=== PATIENT | female | born 1985 | race African-American/Black ===

== ENCOUNTER → 2017-12-31 15:19 | Outpatient (CLI) | payer OTHER, SELFPAY ==
[2017-12-31 16:49] LABS: Anion Gap 5 (5-15); BUN 11 mg/dL (7-18); BUN/Creat Ratio 12.7 RATIO (10-20); Calcium,Total 9.3 mg/dL (8.5-10.1); Chloride 104 mmol/L (98-107); Creatinine, Serum 0.87 mg/dL (0.55-1.02); EST Glomerular Filtration Rate 80 mL/min (>60); Est Glom Filt Rate - Afr Amer 96 mL/min (>60); Glucose 73 mg/dL (74-106); Potassium 3.4 mmol/L (3.5-5.1); Sodium Level 138 mmol/L (136-145)
== END ==
PROVIDERS: Family Provider Internal Medicine; PCP Internal Medicine; Visit Provider Internal Medicine
DX: I10 Essential (primary) hypertension (principal)
CPT/HCPCS: 36415; 80048

== ENCOUNTER → 2019-07-06 09:11 | Outpatient (CLI) | payer OTHER, SELFPAY ==
[2019-06-13 09:24] VITALS: BMI 28.8
[2019-07-06 10:28] LABS: Anion Gap 4 (5-15); BUN 6 mg/dL (7-18); BUN/Creat Ratio 6.8 RATIO (10-20); Calcium,Total 9.1 mg/dL (8.5-10.1); Chloride 99 mmol/L (98-107); Creatinine, Serum 0.88 mg/dL (0.55-1.02); EST Glomerular Filtration Rate 78 mL/min (>60); Est Glom Filt Rate - Afr Amer 94 mL/min (>60); Glucose 93 mg/dL (74-106); Sodium Level 133 mmol/L (136-145)
== END ==
PROVIDERS: Family Provider Internal Medicine; PCP Internal Medicine; Referring Provider Internal Medicine; Visit Provider Internal Medicine
DX: I10 Essential (primary) hypertension (principal)
CPT/HCPCS: 36415; 80048

== ENCOUNTER → 2019-07-11 10:01 | Outpatient (CLI) | payer OTHER, SELFPAY ==
[2019-07-11 09:10] VITALS: BMI 28.8
[2019-07-11 10:04] LABS: Bacteria 0 SEEN /hpf (None Seen); Mucous, Urine 0 SEEN /hpf (<or=2+); Red Blood Cells-Urine 0 SEEN /hpf (0-5)
[2019-07-11 12:30] LABS: Color, Urine Yellow (Yellow); Glucose, Dipstick Normal (Normal); Ketone-Dipstick Negative (Negative); Leukocyte Esterase-Dipstick 500 /ul (Negative); Nitrite-Dipstick Negative (Negative); Occult Blood-Urine Negative /ul (Negative); Protein-Dipstick Negative (Negative); Specific Gravity, Urine 1.005 (1.002-1.030); Urine Bilirubin Dipstick Negative (Negative); Urine Clarity Sl. Cloudy (Clear); Urine Urobilinogen Normal (Normal)
[2019-07-11 12:41] LABS: Squamous Epithelial Cells - UA 0-5 SEEN /hpf (5-10); White Blood Cells 25-50 SEEN /hpf (0-5)
== END ==
PROVIDERS: Family Provider Internal Medicine; PCP Internal Medicine; Visit Provider Internal Medicine
DX: N39.0 Urinary tract infection, site not specified (principal)
CPT/HCPCS: 81001

== ENCOUNTER → 2019-07-19 09:22 | Outpatient (CLI) | payer OTHER, SELFPAY ==
[2019-07-11 09:10] VITALS: BMI 28.8
[2019-07-19 10:04] LABS: Anion Gap 5 (5-15); BUN 8 mg/dL (7-18); BUN/Creat Ratio 8.4 RATIO (10-20); Calcium,Total 9.5 mg/dL (8.5-10.1); Chloride 105 mmol/L (98-107); Creatinine, Serum 0.95 mg/dL (0.55-1.02); EST Glomerular Filtration Rate 71 mL/min (>60); Est Glom Filt Rate - Afr Amer 86 mL/min (>60); Glucose 81 mg/dL (74-106); Potassium 3.5 mmol/L (3.5-5.1); Sodium Level 138 mmol/L (136-145)
== END ==
PROVIDERS: Family Provider Internal Medicine; PCP Internal Medicine; Referring Provider Internal Medicine; Visit Provider Internal Medicine
DX: I10 Essential (primary) hypertension (principal); E87.6 Hypokalemia
CPT/HCPCS: 36415; 80048

== ENCOUNTER → 2019-08-29 10:24 | Outpatient (CLI) | payer MEDICAID, SELFPAY ==
[2019-07-11 09:10] VITALS: BMI 28.8
[2019-08-29 12:40] LABS: Anion Gap 7 (5-15); BUN 6 mg/dL (7-18); BUN/Creat Ratio 6.5 RATIO (10-20); Calcium,Total 9.5 mg/dL (8.5-10.1); Chloride 103 mmol/L (98-107); Creatinine, Serum 0.93 mg/dL (0.55-1.02); EST Glomerular Filtration Rate 73 mL/min (>60); Est Glom Filt Rate - Afr Amer 89 mL/min (>60); Glucose 87 mg/dL (74-106); Potassium 3.6 mmol/L (3.5-5.1); Sodium Level 136 mmol/L (136-145)
== END ==
PROVIDERS: Family Provider Internal Medicine; PCP Internal Medicine; Referring Provider Internal Medicine; Visit Provider Internal Medicine
DX: I10 Essential (primary) hypertension (principal)
CPT/HCPCS: 36415; 80048

== ENCOUNTER → 2020-06-18 10:20 | Outpatient (CLI) | payer MEDICAID, SELFPAY ==
[2020-06-18 10:01] VITALS: BMI 28.4
[2020-06-18 12:15] LABS: Absolute Lymphocyte Count 1.98 X10^3/uL (0.83-4.51); Absolute Neutrophil Count 2.2 X10^3/uL (2.0-7.7); Basophil# 0.03 X10^3/uL; Basophil% 0.6 % (0-1); Eosinophil# 0.07 X10^3/uL; Eosinophils% 1.5 % (0-5); Hematocrit 38.6 % (37-47); Hemoglobin 12.6 g/dL (12.0-15.0); Lymphocyte # 1.98 X10^3/ul (4.0); Lymphocyte % 42.8 % (19-41); Mean Corp Hgb Conc 32.6 g/dL (32-36); Mean Corpuscular Hgb 27.4 pg (27.0-32.0); Mean Corpuscular Volume 83.9 fL (81-99); Mean Platelet Vol. 9.4 fl (6.2-12.0); Monocyte# 0.36 X10^3/uL; Monocyte% 7.8 % (0-10); NRBC Flagged by Analyzer 0 % (0-5); Neutrophil # 2.18 X10^3/uL (2.7-7.7); Neutrophil % 47.1 % (47-70); Platelet Count 269 K/mm3 (150-450); RBC Distribution Width CV 12.3 % (11.6-14.6); RBC Distribution Width SD 37.2 fl (35.1-43.9); White Blood Count 4.6 K/mm3 (4.4-11.0)
[2020-06-18 12:29] LABS: AST(SGOT) 25 U/L (15-37); Alanine Aminotransfer ALT/SGPT 42 U/L (13-56); Albumin, Serum 3.9 g/dL (3.2-5.0); Alkaline Phosphatase 46 U/L (45-117); Anion Gap 4 (5-15); BUN 7 mg/dL (7-18); BUN/Creat Ratio 7.7 RATIO (10-20); Calcium,Total 9.6 mg/dL (8.5-10.1); Chloride 103 mmol/L (98-107); Cholesterol 154 mg/dL (200); Creatinine, Serum 0.91 mg/dL (0.55-1.02); EST Glomerular Filtration Rate 75 mL/min (>60); Est Glom Filt Rate - Afr Amer 90 mL/min (>60); Globulin 3.8 g/dL (2.2-4.2); Glucose 85 mg/dL (74-106); High Density Lipoprotein 54 mg/dL; Potassium 3.4 mmol/L (3.5-5.1); Protein, Total 7.7 g/dL (6.4-8.2); Sodium Level 134 mmol/L (136-145); Triglycerides 47 mg/dL; Very Low Density Lipoprotein 9 mg/dL (5-40)
== END ==
PROVIDERS: PCP Internal Medicine; Visit Provider Internal Medicine
DX: I10 Essential (primary) hypertension (principal)
CPT/HCPCS: 36415; 80053; 80061; 85025

== ENCOUNTER → 2020-09-24 09:44 | Outpatient (CLI) | payer MEDICAID, SELFPAY ==
[2020-09-24 09:32] VITALS: BMI 29.6
[2020-09-24 13:15] LABS: Anion Gap 4 (5-15); BUN 10 mg/dL (7-18); BUN/Creat Ratio 9.5 RATIO (10-20); Calcium,Total 9.8 mg/dL (8.5-10.1); Chloride 104 mmol/L (98-107); Creatinine, Serum 1.05 mg/dL (0.55-1.02); EST Glomerular Filtration Rate 63 mL/min (>60); Est Glom Filt Rate - Afr Amer 76 mL/min (>60); Glucose 97 mg/dL (74-106); Potassium 3.6 mmol/L (3.5-5.1); Sodium Level 136 mmol/L (136-145)
== END ==
PROVIDERS: PCP Internal Medicine; Visit Provider Internal Medicine
DX: I10 Essential (primary) hypertension (principal)
CPT/HCPCS: 36415; 80048

== ENCOUNTER 2021-01-24 10:13 | Day surgery (SDC) | payer MEDICAID, SELFPAY ==
--- NOTE | 2021-01-22 13:59 | PCM.HP.BLA ---
History and Physical Date of Admission: 01/24/21 Shara Granados Physician Specialty: VESSEL TRAFFIC OFFICER H&P ? Signed Encounter Date: 01/16/2021 Expand AllCollapse All Expand All by Default Hide copied text Baironver for details Pre-Op History and Physical ? HPI: The patient is a 35 year old female presenting for discussion regarding Sterilization. Pt currently using mirena iud- does not desire further children ? ? She is scheduled for laparoscopic salpingectomy and removal of IUD, for desires sterilization. on 01/24/21. Procedure discussed along with risks, benefits and complications. Other alternatives discussed for management. Consent form signed? Yes. ? ? PAST MEDICAL HISTORY PAST MEDICAL HISTORY Diagnosis Date ? Anemia ? ? ? Chlamydia ? ? 2010 ? Essential hypertension 09/04/2015 ? Heart murmur ? Trivial TR and MR ? HTN in , chronic 02/21/2015 ? Iron deficiency anemia 11/07/2015 ? ? PAST SURGICAL HISTORY PAST SURGICAL HISTORY Procedure Laterality Date ? DELIVERY ONLY ? 07/13/15 ? , low transverse ? PAST SURGICAL HISTORY OF ? 11/2005 ? I&D OF ABCESS ON BUTTOCKS ? ? ? CURRENT MEDICATIONS Current Outpatient Medications Medication Sig Dispense Refill ? losartan (COZAAR) 50 mg tablet 100 mg once daily. ? ashwagandha root extract 300 mg cap Take by mouth. ? ? ? cholecalciferol (VITAMIN D-3) 5,000 unit tab Take 5,000 Units by mouth once daily. ? ? ? Ascorbic Acid (VITAMIN C) 500 mg chew Take 500 mg by mouth once daily. ? ? ? docosahexaenoic acid/epa (FISH OIL ORAL) Take by mouth. ? ? ? Fish Oil-Vit E-Fat Acid5-Hb137 (FLAX, FISH AND BORAGE OIL) 400-5 mg-unit cap Take 1 capsule by mouth. ? ? ? LISINOPRIL ORAL Take by mouth. Takes 50mg daily ? ? ? MULTIVITAMIN ORAL Take by mouth. ? ? ? ferrous sulfate (IRON, FERROUS SULFATE,) 325 mg (65 mg iron) tablet Take 325 mg by mouth daily with breakfast. ? ? ? hydroCHLOROthiazide (HYDRODIURIL, ESIDRIX) 25 mg tablet Take 1 tablet by mouth once daily. (Patient taking differently: Take 12.5 mg by mouth once daily. ) 90 tablet 3 ? levonorgestrel (MIRENA) 20 mcg/24 hr (5 years) IUD Inserted in office 1 Each 0 ? ibuprofen (MOTRIN) 600 mg tablet Take 1 tablet by mouth every 6 hours as needed. 30 tablet 0 ? simethicone, chewable (MYLICON) 80 mg chewable tablet Take 1 tablet by mouth every 6 hours as needed. 30 tablet 0 ? clotrimazole-betamethasone (LOTRISONE) cream Apply 1 application to affected area twice daily. (Patient not taking: Reported on 09/05/2019 ) 15 g 0 ? No current facility-administered medications for this visit. ? ? ALLERGIES: Bactrim [Sulfamethoxazole-Trimethoprim] ? PERSONAL HISTORY: SOCIAL HISTORY Social History ? Tobacco Use ? Smoking status: Never Smoker ? Smokeless tobacco: Never Used Vaping Use ? Vaping Use: Never used Substance Use Topics ? Alcohol use: No ? Drug use: No ? FAMILY HISTORY: FAMILY HISTORY FAMILY HISTORY Problem Relation Age of Onset ? Hypertension Mother ? ? Hyperlipidemia Father ? ? Cancer Father ? ? ? REVIEW OF SYMPTOMS: negative except as noted above PHYSICAL EXAMINATION: ? VITALS: Blood pressure 144/82, height 5' 7.5 (1.715 m), weight 195 lb (88.5 kg), last menstrual period 10/26/2016. ? GENERAL: The patient is well nourished, well hydrated in no acute distress. , The patient is oriented to time, place, and person. NECK: full range of motion GENITALIA: deferred ? IMPRESSION: Desires sterilization and removal of IUD ? PLAN: Laparoscopic bilateral salpingectomy and removal of iud ? Pt has been counseled on risks/benefits and alternatives of surgery including but not limited to anesthesia, bleeding, infection, injury to pelvic structures including bowel, bladder, ureters and vessels. Pt wishes to proceed with surgery at this time. ? TITLE 19 previously signed- discussed continued use of LARC and irreversible procedure with Salpingectomy- pt understands and wishes to proceed. POST OP MEDS GIVEN ? ? I have reviewed and updated past medical and surgical history, medications and allergies Shara Granados MD ?3:43 PM
--- NOTE | 2021-01-24 | FALS_PTH ---
PATIENT: LENNY LONDONO LOC: [facility] [place][id number] AGE/SX: 35/F ROOM: RE01/24/[address]: Dr. Shara Cruz, MDDOB: 1985 BED: DIS: 01/24/2021 SPEC #: [id number] RECD: 01/24/21 13:30 STATUS: IWONA SARAH #: [id number] JERE: 01/24/21 00:[address]: Shara Cruz DEPT: SURGICAL PATHOLOGY RECD BY: Tarun Simons ENTERED: 01/25/21 07:56 SP TYPE: FALL TUBES OTHR DR: Dr. Razia Gtz MD Tissues: Fallopian tube Procedures: Surgery Specimen Level II HEADER OPERATION: Laparoscopic salpingectomy, IUD removal PRE-OP DIAGNOSIS: Sterilization, removal of IUD TISSUE SUBMITTED: Bilateral fallopian tubes MICROSCOPIC DIAGNOSIS Right and left fallopian tubes, bilateral salpingectomies: Complete cross-sections of fallopian tubes with no pathologic change. AM:bennett 01/28/2021 MICROSCOPIC DESCRIPTION Slides are reviewed. GROSS DESCRIPTION Received in fixative is one container labeled with the patient's name and designated bilateral fallopian tubes. The specimen consists of bilateral fallopian tubes including fimbrial ends measuring 5.5 cm in length and 0.6 cm in diameter and 7 cm in length and 0.5 cm in diameter. The fallopian tubes are not identified as right or left. Sections reveal unremarkable cut surfaces. Embossing Machine Operator Helper sections are submitted in two cassettes with each cassette containing one fallopian tube. / LOIDA:bennett 01/25/21 TC:4 CPT: 87926 x2
[2021-01-24 10:36] VITALS: BP 149/65; PULSE 79; RESP 14; TEMP 36.6; O2SAT 100; BMI 30.7
[2021-01-24 10:37] LABS: Internal QC Validated? YES +Cl - CLEAR BKGD; Pregnancy, Urine Negative Negative
[2021-01-24 11:01] LABS: Hematocrit 39.1 % (37-47); Hemoglobin 12.7 g/dL (12.0-15.0); Mean Corp Hgb Conc 32.5 g/dL (32-36); Mean Corpuscular Hgb 27.7 pg (27.0-32.0); Mean Corpuscular Volume 85.2 fL (81-99); Mean Platelet Vol. 8.6 fl (6.2-12.0); Platelet Count 260 K/mm3 (150-450); RBC Distribution Width CV 12.5 % (11.6-14.6); RBC Distribution Width SD 38.6 fl (35.1-43.9); Red Blood Count 4.59 M/mm3 (4.2-5.4); White Blood Count 5.4 K/mm3 (4.4-11.0)
[2021-01-24] MEDS: Lactated Ringers 1,000 ML 100 ML IV ×2 (11:02→13:01)
[2021-01-24 11:14] LABS: Anion Gap 5 (5-15); BUN 6 mg/dL (7-18); BUN/Creat Ratio 6.2 RATIO (10-20); Calcium,Total 9.6 mg/dL (8.5-10.1); Chloride 103 mmol/L (98-107); Creatinine, Serum 0.97 mg/dL (0.55-1.02); EST Glomerular Filtration Rate 69 mL/min (>60); Est Glom Filt Rate - Afr Amer 83 mL/min (>60); Estimated Creatinine Clearance 77.97 ml/min; Glucose 89 mg/dL (74-106); Potassium 3.6 mmol/L (3.5-5.1); Sodium Level 134 mmol/L (136-145)
--- NOTE | 2021-01-24 11:58 | PCM.DC.TUB ---
Discharge Diet: No Restrictions, - - Increase fluid intake for 48 hours. Discharge Activity: Return to Normal Activity, May Drive - when you are no longer taking narcotic pain medications., May Shower, May Take a Tub Bath - in 7 days., - - Ambulate often the next week after surgery. May shower in (days): 1 May resume sexual activity in: 1 week Lifting Restrictions: 25lb for one week Additional Activity Instructions:: Nothing in the vagina for the next 5-7 days. Call your doctor if your incision/area has: Continuous Slow Oozing, Sudden Increased Bleeding, Increased Pain/ Swelling, Increased Redness, Foul Smelling Discharge, Swelling at the incision site Call your doctor if you observe: Fever of 101 or Higher Cleanse incision/area with: - - you have Skin glue over your incision sites. Do not pick it off. You may let soap and water run over the areas and dab dry. Allergies/Adverse Reactions: Allergies sulfamethoxazole [From Bactrim] Allergy (Verified 01/24/21 10:40) Hives trimethoprim [From Bactrim] Allergy (Verified 01/24/21 10:40) Hives Medications to take at Discharge Multivitamin [Daily Multiple Vitamin] 1 ea PO DAILY 03/11/17 iron 45 mg PO DAILY 12/30/17 cholecalciferol (vitamin D3) 25 mcg (1,000 unit) capsule 125 mcg PO DAILY 06/18/20 potassium chloride 20 mEq tablet,extended release 20 meq PO DAILY #90 tab 06/18/20 hydrochlorothiazide 12.5 mg tablet 12.5 mg PO QAM #90 tab 12/17/20 losartan 100 mg tablet 100 mg PO DAILY 90 Days #90 tab 01/07/21 Ascorbic Acid [Vitamin C] 500 mg PO DAILY 01/17/21 Valentines-3 Fatty Acids [Fish Oil] 500 mg PO DAILY 01/17/21 Primary Care Physician: Razia Gtz MD [Primary Care Provider] - Test Results: Test results from this visit will be discussed in further detail at your follow-up appointment, if applicable. Please Follow Up With: Shara Cruz MD When: 2 weeks [phone]
[2021-01-24] MEDS: Bupivacaine Mpf 0.5% 30 ML VIAL (12:50)
--- NOTE | 2021-01-24 12:55 | OP.PCM_ITS ---
Problem List (1) Intra-abdominal adhesions Status: Acute Report of Operation Date of Procedure: 01/24/21 Pre-Operative Diagnosis: Intra-abdominal adhesions Post-Operative Diagnosis: Same Surgery/Procedure Performed:: Laparoscopic enteral lysis of intra-abdominal adhesions Type of Anesthesia:: General Anesthesiologist: Harish Enriquez Specimen's removed: none Estimated Blood Loss (mL): < 5 cc Description of Procedure: I was called into the operating room from Shara Browne. Ms. Kelly was in the supine position with her legs in stirrups 3 #5 trochars were in her abdomen just above the umbilicus and then 2 on the left and right side. Patient had dense adhesions of the small intestine up to the abdominal wall. And was clear that this was going to act as a pedicle at some point. In my opinion these adhesions needed to be taken down. I took sharp new Metzenbaum sc issors and a nonpenetrating grasper I grabbed the small intestine pulled it down and was able to remove the adhesions from the abdominal wall using only sharp dissection. I had no injury to bowel or to the vasculature of the small intestine. Once it was completely down I inspected there were no other adhesions on the small intestine there was no other lesions on the small intestine and I had good in the stasis. Patient has a diastases of her lower fascia but it is not really a true hernia. But she does have an umbilical hernia. Shara Browne will dictate the rest of portions of the surgery. I will follow up with the patient regarding her umbilical hernia defect. - Admit VTE Documentation VTE Present on Admission: No VTE Mechan Device Prophylaxis: SCD's VTE Pharm Prophylaxis ordered?: No Reason prophylaxis not ordered:: Treatment Not Indicated
--- NOTE | 2021-01-24 13:05 | PCM.OPRPT ---
Report of Operation Date of Procedure: 01/24/21 - start time: 1218 end 1304 Pre-Operative Diagnosis: desires sterilization, IUD threads lost Post-Operative Diagnosis: same, Small bowel adhesions to anterior abomdinal wall Surgery/Procedure Performed:: Laparoscopic Bilateral Salpingectomy, Hysteroscopic removal retained IUD, enterolysis (performed by Dr. Hudson) Description of Surgical Findings:: Umbilical hernia appreciated. Small bowel adherant to anterior abdominal wall - rectus diathesis. normal uterus, tubes and ovaries. Unable to remove IUD with long lainey- operative hysteroscope was performed to remove Type of Anesthesia:: General Special Medications: 0.5% marcaine Specimen's removed: Bilateral fallopian tubes, Mirena IUD Drains: none Estimated Blood Loss (mL): 5 Fluids Replaced: 1200 Description of Procedure: After informed consent was obtained patient was taken to the operating room she was placed in supine position she was given anesthesia. She was then placed in the [facility] stirrups and she was prepped and draped in normal sterile fashion. Bladder was drained prior to the start of procedure. At this time attention was turned to the vaginal portion where weighted speculum placed at posterior fornix vagina single-tooth tenaculum was used to gently grasp the internal the cervix. uterus was gently sounded to approximately 9 cm. unable to remove IUD as threads were lost and mulitple attempts at removal were unsuccessful at this time- OR team gathered instruments for Hysteroscopic assisted removal. at this time Uterine manipulator was placed without difficulty. Legs then placed in parallel with the abdomen the tenaculum and the weighted speculum were removed. 2 towel clamps were placed at level of umbilicus. Marcaine was injected Supraumbilical and a small incision was made. The 5 mm trocar was placed under direct visualization. CO2 gas was used to insufflate the intra-abdominal cavity. Upon inspection small bowel adherent to anterior abdominal wall in rectus diasthesis. General surgeon Dr. Hudson called to removed adhesions. no gross abnormalities of uterus, tubes or ovaries appreciated- the uterus tubes and ovaries appeared to be normal.possible small area in left culdesac that could represent endometriosis. Next the right and left lower quadrant ports were placed. First Marcaine was injected and then and the 5 mm trocars were placed. At this time then tubes were traced back to the fimbriated ends. Ligasure was used to coagulate and ligate along mesosalpynx bilaterally until tubes removed completely. Good hemostasis was appreciated. This time Dr. Hudson entered the room. Please see his note on enterolysis. He confirmed that it is a rectus diastases but does have a true umbilical hernia. At this time procedure was deemed complete successful. The gas was desufflated on from the intra-abdominal cavity. The trochars were removed. Skin was closed using 4-0 Monocryl in a subcutaneous fashion. Dermabond glue was placed. Time attention was then turned to the vaginal portioion. Hysteroscope was inserted using normal saline as distention medium. IUD was visualized the strings were wrapped around the base of the IUD. At this time the operative sheath was placed and the polyp forceps was used to grasp the IUD and it was removed tact. At this time hysteroscope was removed and hysteroscopy was complete. Instrument lap and needle counts were correct ?2. The uterine manipulator was removed. Vaginal sweep was performed it was negative. There were no complications anticipated normal postoperative course for this patient. Grafts/Implants Used: none - Complications none - Admit VTE Documentation VTE Present on Admission: Yes VTE Mechan Device Prophylaxis: SCD's VTE Pharm Prophylaxis ordered?: No
[2021-01-24 13:18] VITALS: BP 127/76; BP 149/65; PULSE 80; RESP 16; TEMP 36.2; O2SAT 100
[2021-01-24 13:30] VITALS: BP 126/75; BP 149/65; PULSE 71; RESP 16; O2SAT 100
[2021-01-24 13:45] VITALS: BP 133/67; BP 149/65; PULSE 69; RESP 16; TEMP 36.2; O2SAT 100
[2021-01-24] MEDS: HYDROcodone Bitartrate/Apap 5/325 Tablet PO (14:10)
[2021-01-24 14:45] VITALS: BP 137/78; BP 149/65; PULSE 65; RESP 16; TEMP 36.8; O2SAT 100
== END 2021-01-24 15:00 | disposition home or self-care (01) ==
LOC: SDC 10:13 → AC 10:14
PROVIDERS: Anesthesiology; PCP Internal Medicine; Referring Provider Obstetrics & Gynecology; Visit Provider Obstetrics & Gynecology
PROC: (CPT 58661; principal; 2021-01-24 11:45)
DX: Z30.2 Encounter for sterilization (principal); K42.9 Umbilical hernia without obstruction or gangrene; K66.0 Peritoneal adhesions (postprocedural) (postinfection); I10 Essential (primary) hypertension; D50.9 Iron deficiency anemia, unspecified; Z79.899 Other long term (current) drug therapy; Z82.49 Family history of ischemic heart disease and other diseases of the circulatory system; Z88.1 Allergy status to other antibiotic agents
CPT/HCPCS: 00840; 49329; 58562; 58661; 80048; 81025; 85027; 87426; 88302; C9803; J7120; J2405

== ENCOUNTER → 2021-04-12 09:05 | Outpatient (CLI) | payer MEDICAID, SELFPAY ==
[2021-04-12 10:11] LABS: Anion Gap 3 (5-15); BUN 10 mg/dL (7-18); BUN/Creat Ratio 10.3 RATIO (10-20); Calcium,Total 9.4 mg/dL (8.5-10.1); Chloride 103 mmol/L (98-107); Creatinine, Serum 0.98 mg/dL (0.55-1.02); EST Glomerular Filtration Rate 68 mL/min (>60); Est Glom Filt Rate - Afr Amer 83 mL/min (>60); Glucose 104 mg/dL (74-106); Sodium Level 136 mmol/L (136-145)
== END ==
PROVIDERS: PCP Internal Medicine; Referring Provider Internal Medicine; Visit Provider Internal Medicine
DX: I10 Essential (primary) hypertension (principal); E87.6 Hypokalemia
CPT/HCPCS: 36415; 80048

== ENCOUNTER → 2021-09-23 14:52 | Outpatient (CLI) | payer MEDICAID, SELFPAY ==
[2021-09-23 17:07] LABS: ALB/GLOB Ratio 0.9 RATIO (0.9-2.4); AST(SGOT) 18 U/L (15-37); Alanine Aminotransfer ALT/SGPT 34 U/L (13-56); Albumin, Serum 3.7 g/dL (3.2-5.0); Alkaline Phosphatase 53 U/L (45-117); Anion Gap 6 (5-15); BUN 14 mg/dL (7-18); BUN/Creat Ratio 13.9 RATIO (10-20); Calcium,Total 9.4 mg/dL (8.5-10.1); Chloride 103 mmol/L (98-107); Cholesterol 140 mg/dL (200); Creatinine, Serum 1.01 mg/dL (0.55-1.02); EST Glomerular Filtration Rate 65 mL/min (>60); Est Glom Filt Rate - Afr Amer 79 mL/min (>60); Globulin 4.2 g/dL (2.2-4.2); Glucose 82 mg/dL (74-106); High Density Lipoprotein 49 mg/dL; Potassium 3.7 mmol/L (3.5-5.1); Protein, Total 7.9 g/dL (6.4-8.2); Sodium Level 136 mmol/L (136-145); Triglycerides 63 mg/dL; Very Low Density Lipoprotein 13 mg/dL (5-40)
== END ==
PROVIDERS: PCP Internal Medicine; Referring Provider Internal Medicine; Visit Provider Internal Medicine
DX: I10 Essential (primary) hypertension (principal)
CPT/HCPCS: 36415; 80053; 80061

== ENCOUNTER → 2021-10-14 08:56 | Outpatient (CLI) | payer MEDICAID, SELFPAY ==
--- NOTE | 2021-10-14 09:01 | ECHOD_ITS ---
Reason For Study: MURMUR Procedure This was a 2D Doppler, Color Flow transthoracic echocardiogram. Exam performed in department. Left Ventricle Normal LV size. Left ventricular systolic function is normal. The estimated ejection fraction is 55 %. No regional wall motion abnormalities noted. Right Ventricle Normal RV size. Normal systolic function. Atria Normal left atrium. Normal right atrium. Mitral Valve Normal mitral valve. Tricuspid Valve Normal tricuspid valve. Mild tricuspid valve insufficiency. Pulmonary artery systolic pressure is 24 mmHg. Aortic Valve Normal aortic valve. Trisinus/trileaflet aortic valve. Pulmonic Valve Normal pulmonic valve. Great Vessels Normal aortic root. The pulmonary artery is normal size. Normal inferior vena cava. Pericardium/Pleural No pericardial effusion. MMode/2D Measurements & Calculations LVIDd: 5.4 cm IVSd: 0.83 cm Ao root diam: 3.1 cm LVIDs: 3.4 cm LVPWd: 0.89 cm RVDd: 3.4 cm FS: 35.7 % LAV(MOD-bp): 44.4 ml LVAd ap4: 35.2 cm2 LVAd ap2: 36.8 cm2 LAV(MOD-bp) Indexed: 22.0 ml/m2 LVLd ap4: 8.0 cm LVLd ap2: 8.9 cm LAV(MOD-sp2): 41.8 ml EDV(MOD-sp4): 129.6 ml EDV(MOD-sp2): 132.6 ml LAV(MOD-sp4): 42.3 ml EDV(sp4-el): 131.3 ml EDV(sp2-el): 129.0 ml LVAs ap4: 19.2 cm2 LVAs ap2: 19.7 cm2 LVLs ap4: 6.1 cm LVLs ap2: 6.8 cm ESV(MOD-sp4): 52.4 ml ESV(MOD-sp2): 48.4 ml ESV(sp4-el): 51.4 ml ESV(sp2-el): 48.6 ml EF(MOD-sp4): 59.6 % EF(MOD-sp2): 63.5 % EF(sp4-el): 60.8 % SV(MOD-sp4): 77.2 ml SV(MOD-sp2): 84.2 ml SV(sp4-el): 79.9 ml LA dimension(2D): 3.5 cm LA A4 area: 16.2 cm2 RA A4 area: 14.9 cm2 Doppler Measurements & Calculations MV E max yung: 82.4 cm/sec Lat Peak E' Yung: 13.0 cm/sec Med Peak E' Yung: 10.2 cm/sec MV A max yung: 54.0 cm/sec E/E' lat: 6.3 E/E' med: 8.1 MV E/A: 1.5 Ao V2 max: 134.4 cm/sec LV V1 max: 109.4 cm/sec TR max yung: 225.6 cm/sec Ao max P.2 mmHg LV V1 max P.8 mmHg TR max P.4 mmHg ECHO/Echo Complete Interpretation Summary Normal LV size. Left ventricular systolic function is normal. The estimated ejection fraction is 55 %. Structurally normal valves. Ordering Physician: Razia Gtz Referring Physician: Razia Gtz Performed By: Elizabeth Emanuel RDCS, RVT
== END ==
PROVIDERS: PCP Internal Medicine; Referring Provider Internal Medicine; Visit Provider Internal Medicine
DX: R01.1 Cardiac murmur, unspecified (principal); I10 Essential (primary) hypertension
CPT/HCPCS: 93306

== ENCOUNTER → 2022-04-29 | Outpatient (CLI) | payer MEDICAID, SELFPAY ==
[2022-04-29 15:05] LABS: Absolute Lymphocyte Count 2.38 X10^3/uL (0.83-4.51); Absolute Neutrophil Count 1.5 X10^3/uL (2.0-7.7); Basophil# 0.02 X10^3/uL; Basophil% 0.5 % (0-1); Eosinophils% 2.3 % (0-5); Hematocrit 40.9 % (37-47); Hemoglobin 12.7 g/dL (12.0-15.0); Lymphocyte # 2.38 X10^3/ul (0.83-4.51); Lymphocyte % 55.7 % (19-41); Mean Corp Hgb Conc 31.1 g/dL (32-36); Mean Platelet Vol. 9.5 fl (6.2-12.0); Monocyte# 0.25 X10^3/uL; Monocyte% 5.9 % (0-10); NRBC Flagged by Analyzer 0 % (0-5); Neutrophil % 35.1 % (47-70); Platelet Count 243 K/mm3 (150-450); RBC Distribution Width CV 12.2 % (11.6-14.6); White Blood Count 4.3 K/mm3 (4.4-11.0)
[2022-04-29 15:42] LABS: AST(SGOT) 24 U/L (15-37); Alanine Aminotransfer ALT/SGPT 28 U/L (13-56); Albumin, Serum 4.1 g/dL (3.2-5.0); Alkaline Phosphatase 50 U/L (45-117); Anion Gap 5 (5-15); BUN 8 mg/dL (7-18); BUN/Creat Ratio 9.1 RATIO (10-20); Calcium,Total 9.8 mg/dL (8.5-10.1); Chloride 107 mmol/L (98-107); Creatinine, Serum 0.88 mg/dL (0.55-1.02); EST Glomerular Filtration Rate 76 mL/min (>60); Est Glom Filt Rate - Afr Amer 92 mL/min (>60); Glucose 63 mg/dL (74-106); Potassium 3.6 mmol/L (3.5-5.1); Protein, Total 8.1 g/dL (6.4-8.2); Sodium Level 139 mmol/L (136-145)
== END | disposition home or self-care (01) ==
LOC: BIMLAB 08:24
PROVIDERS: PCP Internal Medicine; Visit Provider Internal Medicine
DX: I10 Essential (primary) hypertension (principal)
CPT/HCPCS: 36415; 80053; 85025

== ENCOUNTER → 2022-11-17 | Outpatient (CLI) | payer MEDICAID, SELFPAY ==
[2022-11-17 13:04] LABS: Anion Gap 8 (5-15); BUN 11 mg/dL (7-18); BUN/Creat Ratio 11.3 RATIO (10-20); Calcium,Total 9.9 mg/dL (8.5-10.1); Chloride 107 mmol/L (98-107); Cholesterol 142 mg/dL (200); Creatinine, Serum 0.97 mg/dL (0.55-1.02); EST Glomerular Filtration Rate 68 mL/min (>60); Est Glom Filt Rate - Afr Amer 82 mL/min (>60); Glucose 80 mg/dL (74-106); High Density Lipoprotein 51 mg/dL; Potassium 3.9 mmol/L (3.5-5.1); Sodium Level 138 mmol/L (136-145); Triglycerides 60 mg/dL; Very Low Density Lipoprotein 12 mg/dL (5-40)
== END | disposition home or self-care (01) ==
PROVIDERS: PCP Internal Medicine; Referring Provider Internal Medicine; Visit Provider Internal Medicine
DX: I10 Essential (primary) hypertension (principal)
CPT/HCPCS: 36415; 80048; 80061

== ENCOUNTER → 2023-11-04 | Outpatient (CLI) | payer MEDICAID, SELFPAY ==
[2023-11-04 15:35] LABS: Absolute Lymphocyte Count 2.74 X10^3/uL (0.83-4.51); Absolute Neutrophil Count 1.8 X10^3/uL (2.0-7.7); Basophil# 0.03 X10^3/uL; Basophil% 0.6 % (0-1); Eosinophil# 0.09 X10^3/uL; Eosinophils% 1.8 % (0-5); Hematocrit 40.5 % (37-47); Lymphocyte # 2.74 X10^3/ul (0.83-4.51); Lymphocyte % 53.8 % (19-41); Mean Corp Hgb Conc 32.1 g/dL (32-36); Mean Corpuscular Hgb 27.8 pg (27.0-32.0); Mean Corpuscular Volume 86.5 fL (81-99); Mean Platelet Vol. 8.8 fl (6.2-12.0); Monocyte# 0.38 X10^3/uL; Monocyte% 7.5 % (0-10); NRBC Flagged by Analyzer 0 % (0-5); Neutrophil # 1.84 X10^3/uL (2.7-7.7); Neutrophil % 36.1 % (47-70); Platelet Count 287 K/mm3 (150-450); RBC Distribution Width CV 12.5 % (11.6-14.6); RBC Distribution Width SD 39.6 fl (35.1-43.9); Red Blood Count 4.68 M/mm3 (4.2-5.4); White Blood Count 5.1 K/mm3 (4.4-11.0)
[2023-11-04 16:04] LABS: AST(SGOT) 20 U/L (15-37); Alanine Aminotransfer ALT/SGPT 30 U/L (13-56); Albumin, Serum 4.1 g/dL (3.2-5.0); Alkaline Phosphatase 50 U/L (45-117); Anion Gap 6 (5-15); BUN 9 mg/dL (7-18); BUN/Creat Ratio 7.6 RATIO (10-20); Chloride 103 mmol/L (98-107); Cholesterol 158 mg/dL (200); Creatinine, Serum 1.18 mg/dL (0.55-1.02); EST Glomerular Filtration Rate 54 mL/min (>60); Est Glom Filt Rate - Afr Amer 65 mL/min (>60); Glucose 75 mg/dL (74-106); High Density Lipoprotein 63 mg/dL; Potassium 3.6 mmol/L (3.5-5.1); Protein, Total 8.1 g/dL (6.4-8.2); Sodium Level 136 mmol/L (136-145); Triglycerides 51 mg/dL; Very Low Density Lipoprotein 10 mg/dL (5-40)
== END | disposition home or self-care (01) ==
LOC: BIMLAB 13:33
PROVIDERS: PCP Internal Medicine; Referring Provider Internal Medicine; Visit Provider Internal Medicine
DX: I10 Essential (primary) hypertension (principal)
CPT/HCPCS: 36415; 80053; 80061; 85025

== ENCOUNTER 2024-01-29 05:18 | Day surgery (SDC) | payer MEDICAID, SELFPAY ==
[2024-01-23 11:19] LABS: Hematocrit 38.7 % (37-47); Hemoglobin 12.6 g/dL (12.0-15.0); Mean Corp Hgb Conc 32.6 g/dL (32-36); Mean Corpuscular Hgb 27.9 pg (27.0-32.0); Mean Corpuscular Volume 85.6 fL (81-99); Mean Platelet Vol. 8.8 fl (6.2-12.0); Platelet Count 255 K/mm3 (150-450); RBC Distribution Width SD 37.5 fl (35.1-43.9); Red Blood Count 4.52 M/mm3 (4.2-5.4); White Blood Count 4.2 K/mm3 (4.4-11.0)
[2024-01-23 11:53] LABS: Magnesium 1.9 mg/dL (1.6-2.6)
[2024-01-23 12:28] LABS: Anion Gap 7 (5-15); BUN 8 mg/dL (7-18); BUN/Creat Ratio 7.8 RATIO (10-20); Calcium,Total 9.7 mg/dL (8.5-10.1); Chloride 103 mmol/L (98-107); Creatinine, Serum 1.02 mg/dL (0.55-1.02); EST Glomerular Filtration Rate 64 mL/min (>60); Est Glom Filt Rate - Afr Amer 77 mL/min (>60); Glucose 93 mg/dL (74-106); Potassium 3.8 mmol/L (3.5-5.1); Sodium Level 134 mmol/L (136-145)
[2024-01-29] VITALS (9 sets, daily range): BP systolic 116–144; BP diastolic 63–88; PULSE 58–78; RESP 13–18; TEMP 36.2–36.6; O2SAT 100; BMI 29.2
[2024-01-29 06:00] LABS: Internal QC Validated? YES +Cl - CLEAR BKGD; Pregnancy, Urine Negative Negative
[2024-01-29] MEDS: Lactated Ringers 1,000 ML 40 ML IV (06:00)
[2024-01-29] MEDS: Magnesium 2 GM for ERAS IV (06:00)
[2024-01-29] MEDS: Enoxaparin 40 MG/0.4 ML Syringe SC (06:16)
[2024-01-29] MEDS: Scopolamine 1mg/72hr Patch 1 PATCH TD (06:16)
[2024-01-29] MEDS: Acetaminophen 500 MG Tablet 1000 MG PO (06:17)
[2024-01-29] MEDS: Phenazopyridine 95 MG Tablet 190 MG PO (06:18)
[2024-01-29] MEDS: Celecoxib 200 MG Capsule 400 MG PO (06:18)
[2024-01-29] MEDS: Gabapentin 600 MG Tablet PO (06:19)
[2024-01-29] MEDS: dexAMETHasone 4 MG/ML Vial 8 MG IV (06:19)
[2024-01-29 06:40] LABS: Bedside Glucose 94 mg/dL (74-106)
--- NOTE | 2024-01-29 07:25 | PCM.HP.BLA ---
History and Physical Date of Admission: 01/29/24 Pre-Op History and Physical ? HPI: The patient is a 38 year old female presenting for discussion regarding AUB and surgical management. Pt has tried MIRENA , ocps and depo in past. pre-operative visit. She is scheduled for TLH, cystoscopy, for AUB, dysmenorrhea, fibroid uterus, adenomyosis - failed medical management on 01/21/24. Procedure discussed along with risks, benefits and complications. Other alternatives discussed for management. Consent form signed? Yes. ? ? PAST MEDICAL HISTORY PAST MEDICAL HISTORY Diagnosis Date ? Anemia ? ? ? Chlamydia ? ? 2010 ? Essential hypertension 09/04/2015 ? Heart murmur ? Trivial TR and MR ? HTN in , chronic 02/21/2015 ? Iron deficiency anemia 11/07/2015 ? Peritoneal adhesions (postprocedural) (postinfection) 01/24/2021 ? ? PAST SURGICAL HISTORY PAST SURGICAL HISTORY Procedure Laterality Date ? DELIVERY ONLY ? 07/13/2015 ? , low transverse ? IUD REMOVAL ? 01/24/2021 ? hysteroscopic removal of IUD-Threads lost ? LAPAROSCOPY ENTEROLYSIS SEPARATE PROCEDURE ? 01/24/2021 ? PAST SURGICAL HISTORY OF ? 11/26/2005 ? I&D OF ABCESS ON BUTTOCKS ? SALPINGECTOMY Bilateral 01/24/2021 ? laparoscopic b/l salpingectomy at [facility]-Dr. Granados, ? ? ? CURRENT MEDICATIONS Current Outpatient Medications Medication Sig Dispense Refill ? losartan-hydroCHLOROthiazide (HYZAAR) 100-12.5 mg per tablet once daily. ? ? ? potassium chloride ER (K-DUR, KLOR-CON) 20 mEq tablet ? ashwagandha root extract 300 mg cap Take by mouth. ? ? ? Ascorbic Acid 500 mg chew Take 500 mg by mouth once daily. ? ? ? ferrous sulfate 325 mg (65 mg iron) tablet Take 325 mg by mouth daily with breakfast. ? ? ? cholecalciferol (VITAMIN D3) 5,000 unit tab Take 5,000 Units by mouth once daily. ? ? ? MULTIVITAMIN ORAL Take by mouth. ? ? ? No current facility-administered medications for this visit. ? ? ALLERGIES: Bactrim [Sulfamethoxazole-Trimethoprim] ? PERSONAL HISTORY: SOCIAL HISTORY Social History ? Tobacco Use ? Smoking status: Never ? Smokeless tobacco: Never Vaping Use ? Vaping Use: Never used Substance Use Topics ? Alcohol use: No ? Drug use: No ? FAMILY HISTORY: FAMILY HISTORY FAMILY HISTORY Adopted: Yes Problem Relation Age of Onset ? Hypertension Mother ? ? Hyperlipidemia Father ? ? Cancer Father ? ? ? REVIEW OF SYMPTOMS: negative except as noted above PHYSICAL EXAMINATION: ? VITALS: Blood pressure 142/82, weight 191 lb (86.6 kg), last menstrual period 12/10/2023. ? GENERAL: The patient is well nourished, well hydrated in no acute distress. , The patient is oriented to time, place, and person. NECK: full range of motion LUNGS: Clear to auscultation bilaterally. no wheezes, rhonchi or rales HEART: Regular rate and rhythm, Normal heart sounds, and No murmurs or gallops GENITALIA: Normal external genitalia, Urethral meatus normal, Bladder nontender, normal vagina and normal vaginal tone, normal cervix, normal uterus, size and consistency, normal adnexa without masses or tenderness, and perineum WNL ? IMPRESSION: 38yo with AUB, failed medical management with hormones and desires surgical intervention- previously had bilateral salpingectomy- does not desire future child bearing capabilities ? PLAN: TLH, Cystoscopy ? Pt has been counseled on risks/benefits and alternatives of surgery including but not limited to anesthesia, bleeding, infection, injury to pelvic structures including bowel, bladder, ureters and vessels. Pt wishes to proceed with surgery at this time. Risk of transfusion reviewed. ? Pre and post op instructions reviewed. ? I have reviewed and updated past medical and surgical history, medications and allergies Shara Granados MD Electronically signed by Shara Stevens MD
--- NOTE | 2024-01-29 07:30 | HYST_PTH ---
PATIENT: LENNY LONDONO [place] [facility] [place][id number] AGE/SX: 38/F ROOM: RE01/29/[address]: Dr. Shara Cruz, MDDOB: 1985 BED: DIS: 01/29/2024 SPEC #: [id number] RECD: 01/29/24 11:08 STATUS: IWONA AGOSTOLucy #: [id number] JERE: 01/29/24 07:[address]: Shara Cruz DEPT: SURGICAL PATHOLOGY RECD BY: Laura Felder ENTERED: 01/29/24 12:17 SP TYPE: HYSTERECT OTHR DR: Dr. Razia Gtz MD Tissues: Uterus, NOS Procedures: Surgery Specimen Level V HEADER OPERATION: ERAS, hysterectomy, TLH, cystoscopy PRE-OP DIAGNOSIS: Abnormal uterine bleeding TISSUE SUBMITTED: Uterus and cervix MICROSCOPIC DIAGNOSIS Uterus and cervix, hysterectomy: Cervix - Acute and chronic inflammation. Endometrium - Secretory endometrium. Myometrium - Diffused adenomyosis. - Intramural and subserosal leiomyomas (largest measures 2.0cm in greatest dimension) with focal calcification. LOIDA/ 02/01/24 MICROSCOPIC DESCRIPTION Slides are reviewed. GROSS DESCRIPTION Received in fixative is one container labeled with the patient's name and designated uterus and cervix. The specimen consists of a hysterectomy specimen consisting of Uterus with cervix. The uterus with cervix weighs 170 gm and measures 11.5 x 8.0 x 6.0 cm. The serosal surface is focally ragged. A few subserosal nodules are also noted. The ectocervical mucosa is hill glistening and unremarkable. The posterior portion of the ectocervix is not present in this specimen. The external os is oval in contour. The endocervical canal measures 3.0 cm in length and the endocervical mucosa is hill glistening and unremarkable. The triangular endometrial cavity measures 5.0 cm in length and up to 3.0 cm in width. The endometrium is pink, glistening without any mass lesions and measures up to 0.2 cm in thickness. Sections of the uterine wall reveals multiple intramural and subserosal nodular masses. Largest measuring 2.0cm in greatest dimension. Sections of these masses reveal hill whorled cut surfaces without areas of hemorrhage, necrosis or cystic degeneration. Uterine wall measures up to 3.0cm in thickness. One of the subserosal nodules also shows focal area of calcification. Contact Center Agent sections are submitted in nine cassettes as follows: 1- anterior cervix, 2 - posterior cervix, 3 & 4 - anterior uterine wall, 5 & 6 - posterior uterine wall, 7- Largest nodular mass, 8- Second largest nodular mass, 9- Smaller nodular masses. LOIDA: 01/29/24 TC:1 CPT: 25957
[2024-01-29] MEDS: Cefazolin 2 GM in 0.9% Normal Saline (100mL Bag) 100 ML IV (07:35)
[2024-01-29] MEDS: Lubricating Jelly 60 GM Tube 30 GM (07:56)
[2024-01-29] MEDS: Bupivacaine Mpf 0.5% 30 ML VIAL (08:00)
--- NOTE | 2024-01-29 09:58 | DCINST_ITS ---
Discharge Instructions Diet Discharge Diet: No restrictions Activity Discharge Activity: May Not Drive (while taking narcotics. may drive when pain controlled. ) and May Shower May shower in (days): 1 May resume sexual activity in: 6-8 weeks Weight Bearing Status: Full weight bearing Lifting Restrictions: 20 Additional Activity Instructions:: NOTHING IN THE VAGINA x 6-8 weeks. Dressing / Incision Call your doctor if your incision/area has: Continuous Slow Oozing, Sudden Increased Bleeding, Increased Pain/ Swelling, Increased Redness, Foul Smelling Discharge and Swelling at the incision site Call your doctor if you observe: Fever of 101 or Higher, Inability to have a bowel movement, Using more than 1 pad per hour and Uncontrolled pain Change Dressing in: leave in place till F/U (you have skin glue over incision sites- do not pick off) Cleanse incision/area with: Soap & Water, Keep Dressing Clean & Dry and - (you may let soap and water run over incision sites and dab dry. ) Follow Up Care Please Follow Up With: Shara Granados MD When: 2 weeks as scheduled for post op visit Test Results: Test results from this visit will be discussed in further detail at your follow- up appointment, if applicable. Discharge Plan Admission Attending Provider: Shara Granados Primary Care Provider: Razia Gtz Discharge Orders/Prescriptions Prescriptions: No Action biotin 10,000 mcg capsule 10,000 mcg PO DAILY ashwagandha root extract 500 mg capsule 500 mg PO DAILY Fish OiL 2,400 mg PO DAILY losartan-hydrochlorothiazide 100-12.5 mg tablet 1 tab PO DAILY Rx Instructions: TAKE 1 TABLET BY MOUTH ONCE DAILY polyethylene glycol 3350 [Miralax] 17 gram/dose powder 17 g PO DAILY PRN (Reason: constipation) iron tablet 65 mg PO DAILY potassium chloride 20 mEq tablet extended release 20 meq PO DAILY Qty: 90 3RF Referrals / Follow Up: Razia Gtz MD [Primary Care Provider] - Disposition Disposition (needs filled in before D/C Order can be placed): Home, Self Care
--- NOTE | 2024-01-29 09:58 | PCM.OPRPT ---
Report of Operation Date of Procedure: 01/29/24 Pre-Operative Diagnosis: aub, adenoymosis, fibroid uterus, dysmenorrhea Post-Operative Diagnosis: same, endometrosis Surgery/Procedure Performed:: TLH, Cystoscopy Description of Surgical Findings:: small endometriotic implants noted, normal ovaries bilaterally - adhesions to bladder and anterior lower uterine segment. Dr. Reynolds assisted in manipulation of tissue, holding camera, retraction. Surgeon: Shara Granados lacquer machine feeder: Esme Reynolds lacquer machine feeder: Thomas Gu Type of Anesthesia: General and Local Special Medications: 0.5%marcaine , hemoblast Specimen's removed: uterus and cervix Drains: none Estimated Blood Loss (mL): 100 Fluids Replaced: 1000 Description of Procedure: Patient take to OR and prepped and draped in usual sterile fashion in dorsal lithotomy position with her arms tucked in a neurologically safe and neutral position. The uterus sounded to 7.5 cm. The lawyer criminal uterine manipulator was sutured into place at 3/9:00 position and aguilar were placed. Attention was turned to the abdomen. All port sites were infiltrated with o.5% marcaine before the incisions were made. The anterior abdominal wall was tented up with towel clamps and using a direct entry approach a 5 mm supraumbilical port was placed. Intraperitoneal placement was confirmed with the laparoscope and the pneumoperitoneum was created. The patient was placed in Trendelenburg and 5 mm right and left lower quadrant ports were placed under direct visualization. Air seal rapid insufflator was used. The bowel was swept away. Ovaries appeared normal. Tubes previous removed. small endometriotic implants in posterior CDS and pelvic sidewall. The round ligaments were divided. The anterior peritoneum was dissected down to create the bladder flap with blunt dissection and the LigaSure. The uterine arteries were isolated, clamped, sealed and cut. There was minimal back bleeding from the uterus. Straight bites on uterine artieries performed to drop them off the cuff. The manipulator cup was used as guide to create colpotomy using monopolar tip of ligasure. once specimen was removed attention was turned to vaginal portion. The specimen was handed off. The posterior peritoneum was run with 2-0 vicryl. The cuff was closed with interrupted 0-vicryl figure of 8 sutures. Cystoscopy was performed bilateral ureters were visualized with good efflux. bladder was intact. aguilar replaced and sponge stick placed in vagina. The pneumoperitoneum was recreated- small oozing from left side of cuff. Hemoblast was placed and pressure held for two minutes. Good hemostasis appreciated. The remained hemobalst was placed over cuff and pedicles. The skin incisions were closed with skin glue and 3-0 monocryl in the LLQ port site. The vaginal sweep was completed by me. Grafts/Implants Used: none Grafts/Implants Used: none Procedure Start Time: 07:56 Procedure Stop Time: 10:00 Complications none Admit VTE Documentation VTE Present on Admission: Yes VTE Mechan Device Prophylaxis: SCD's VTE Pharm Prophylaxis ordered?: Yes
[2024-01-29] MEDS: Ondansetron 4 MG/2 ML Vial IV (10:10)
[2024-01-29] MEDS: Lactated Ringers @ 70 MLS/HR 70 ML IV (11:17)
[2024-01-29 13:39] LABS: Hematocrit 37.6 % (37-47); Hemoglobin 11.8 g/dL (12.0-15.0); Mean Corp Hgb Conc 31.4 g/dL (32-36); Mean Corpuscular Hgb 26.7 pg (27.0-32.0); Mean Corpuscular Volume 85.1 fL (81-99); Mean Platelet Vol. 8.8 fl (6.2-12.0); Platelet Count 233 K/mm3 (150-450); RBC Distribution Width CV 11.9 % (11.6-14.6); RBC Distribution Width SD 36.6 fl (35.1-43.9); Red Blood Count 4.42 M/mm3 (4.2-5.4); White Blood Count 8.5 K/mm3 (4.4-11.0)
== END 2024-01-29 14:10 | disposition home or self-care (01) ==
LOC: SDC 05:18 → AC 05:19
PROVIDERS: Anesthesiology; PCP Internal Medicine; Referring Provider Obstetrics & Gynecology; Visit Provider Obstetrics & Gynecology
PROC: 0UT94ZZ Resection of Uterus, Percutaneous Endoscopic Approach (ICD-10-PCS; CPT 58570; principal; 2024-01-29 07:10)
DX: D25.1 Intramural leiomyoma of uterus (principal); I10 Essential (primary) hypertension; N94.6 Dysmenorrhea, unspecified; D50.9 Iron deficiency anemia, unspecified; N93.9 Abnormal uterine and vaginal bleeding, unspecified; N80.03 Adenomyosis of the uterus; D64.9 Anemia, unspecified; E87.6 Hypokalemia; Z90.79 Acquired absence of other genital organ(s); N72 Inflammatory disease of cervix uteri; D25.2 Subserosal leiomyoma of uterus
CPT/HCPCS: 58570; 00840; 52000; 80048; 81025; 82962; 83735; 85027; 86850; 86900; 86901; 88307; J7120; J2405